=== PATIENT | male | born 1930 | race Caucasian/White ===

== ENCOUNTER 2021-01-22 11:23 | Inpatient (IN) | payer MEDICARE, OTHER ==
[~2021-01-22] VITALS: Ht 167.6 cm; Wt 69.1 kg
[2021-01-22 12:03] LABS: BASOPHIL 0.2 % (0-2); EOSINOPHIL 0 % (0-7); HCT 42.5 % (42.0-52.0); HGB 14.4 g/dl (13.2-18.0); MCH 31.2 pg (25.0-31.0); MCHC 33.9 g/dL (32.0-36.0); MCV 92.2 fL (78.0-100.0); MONOCYTE 5.1 % (0-12); MPV 10.4 fL (6.0-9.5); NEUTROPHIL 77.4 % (41-80); NRBC 0; PLT 184 K/uL (150-400); RBC 4.61 M/uL (4.70-6.00); RDW 14.5 % (11.5-14.0); WBC 9.5 K/uL (4.0-10.5)
[2021-01-22 12:13] LABS: INR 1.11 (0.9-1.2); PROTHROMBIN TIME 13.7 SECONDS (11.8-13.4)
[2021-01-22 12:30] LABS: ALBUMIN 3.3 g/dL (3.4-5.0); BILIRUBIN - TOTAL 0.6 mg/dL (0.2-1.0); GLOBULIN (CALCULATION) 4.7 g/dL; POTASSIUM 3.1 mmol/L (3.5-5.1)
[2021-01-22 12:37] LABS: LACTIC ACID 1.5 mmol/L (0.4-1.9)
[2021-01-23 06:08] LABS: BASOPHIL 0.1 % (0-2); EOSINOPHIL 0 % (0-7); HCT 41.2 % (42.0-52.0); HGB 13.8 g/dl (13.2-18.0); LYMPHOCYTE 19.3 % (15-48); MCH 31.2 pg (25.0-31.0); MCHC 33.5 g/dL (32.0-36.0); MCV 93.2 fL (78.0-100.0); MONOCYTE 5.3 % (0-12); MPV 10.3 fL (6.0-9.5); NEUTROPHIL 74.8 % (41-80); NRBC 0; PLT 178 K/uL (150-400); RBC 4.42 M/uL (4.70-6.00); RDW 14.5 % (11.5-14.0); WBC 7.5 K/uL (4.0-10.5)
[2021-01-23 06:10] LABS: HBSAG SCREEN Negative (Negative); HEP A AB, IGM Negative (Negative); HEP B CORE AB, IGM Negative (Negative); HEP C VIRUS AB <0.1 (0.0-0.9)
[2021-01-23 06:30] LABS: ALBUMIN 2.9 g/dL (3.4-5.0); BILIRUBIN - TOTAL 0.5 mg/dL (0.2-1.0); BUN/CREAT RATIO (CALC) 39.6 RATIO; CREATININE 1.06 mg/dL (0.67-1.17); GLOBULIN (CALCULATION) 4.7 g/dL; MAGNESIUM 2.8 mg/dL (1.8-2.4); POTASSIUM 3.9 mmol/L (3.5-5.1); TOTAL PROTEIN 7.6 g/dL (6.4-8.2)
[2021-01-25 07:06] LABS: BASOPHIL 0.1 % (0-2); EOSINOPHIL 0 % (0-7); HCT 44.3 % (42.0-52.0); HGB 14.6 g/dl (13.2-18.0); LYMPHOCYTE 10.5 % (15-48); MCH 31.4 pg (25.0-31.0); MCV 95.3 fL (78.0-100.0); MONOCYTE 5.5 % (0-12); MPV 10.6 fL (6.0-9.5); NEUTROPHIL 83.3 % (41-80); NRBC 0; PLT 210 K/uL (150-400); RBC 4.65 M/uL (4.70-6.00); RDW 14.4 % (11.5-14.0); WBC 12.4 K/uL (4.0-10.5)
[2021-01-25 07:48] LABS: ALBUMIN 2.8 g/dL (3.4-5.0); BILIRUBIN - TOTAL 0.8 mg/dL (0.2-1.0); BUN/CREAT RATIO (CALC) 44.3 RATIO; CREATININE 0.88 mg/dL (0.67-1.17); GLOBULIN (CALCULATION) 4.6 g/dL; POTASSIUM 3.7 mmol/L (3.5-5.1); TOTAL PROTEIN 7.4 g/dL (6.4-8.2)
[2021-01-28 07:52] LABS: BASOPHIL 0.2 % (0-2); EOSINOPHIL 0 % (0-7); HCT 45.7 % (42.0-52.0); LYMPHOCYTE 5.8 % (15-48); MCH 31.3 pg (25.0-31.0); MCHC 32.8 g/dL (32.0-36.0); MCV 95.2 fL (78.0-100.0); MONOCYTE 3.5 % (0-12); MPV 10.7 fL (6.0-9.5); NEUTROPHIL 89.4 % (41-80); NRBC 0; PLT 288 K/uL (150-400); RDW 14.3 % (11.5-14.0); WBC 17.2 K/uL (4.0-10.5)
[2021-01-28 08:07] LABS: ALBUMIN 2.7 g/dL (3.4-5.0); BILIRUBIN - TOTAL 0.7 mg/dL (0.2-1.0); BUN/CREAT RATIO (CALC) 51.1 RATIO; CREATININE 0.94 mg/dL (0.67-1.17); GLOBULIN (CALCULATION) 5.1 g/dL; MAGNESIUM 3.1 mg/dL (1.8-2.4); POTASSIUM 3.8 mmol/L (3.5-5.1); TOTAL PROTEIN 7.8 g/dL (6.4-8.2)
--- NOTE | 2021-01-29 15:15 | NUR ---
01/29/21 Mr. Villaseñor is an 89 y/o gentleman admitted with dx of COVID. He and his spouse were admitted on 01/22/21. Ms. Villaseñor several days ago. Nursing reports patient to be taking off his oxygen and stating that he wants to . Corinna Moran, MS RN, and this forensic social worker spoke to Mr. Villaseñor re: his wishes. He said he was taking off his oxygen and wanted to because he is going to anyway. He was educated that the goal is to reduce the level of oxygen as tolerate to allow him to return home with his daughter. He was informed that the outcome cannot be predicited. Mr. Villaseñor says he does not want to and he wishes to return home. He gave permission for us to talk with his family. He also wishes to see his family (Permission was given by Administration for family to visit. - Corinna Moran and this forensic social worker telephoned his daughter, Angie Ly, , and her granddaughter, Violet Perez. The family plan to visit today. Ms. perez stated that the family supports whatever decisions Mr. Villaseñor makes. - A report was given to Dr. Rivers and MS Machine Ironer, Deya Carty.
--- NOTE | 2021-01-30 20:06 | NUR ---
PATIENT FOUND WITH O2 OFF, SAT ON LEFT HAND WAS 60%. PLACED PATIENT BACK ON 100% NRB AND SAT DID INCREASE TO 85%. HR 115. PATIENT IS RESTLESS.
--- NOTE | 2021-01-30 23:09 | NUR ---
PT REFUSING ALL CARE, SPOKE WITH CHOCOLATE MOLDER/GRANDCHILD VIVIANE MONTALVO [phone]. [facility] STATES COMFORT MEASURES ARE ALL THEIR LOVED ONE NEEDS AT THIS TIME. [employer] ARCHITECT BERKLEY NOTIFIED.
--- NOTE | 2021-02-01 11:59 | NUR ---
1150 PATIENT NOTED TO HAVE KIA VALDOVINOS BREATHING, TACHYCARDIA 110-125. PATIENT COMFORT CARE. DR BURGOS NOTIFIED OF CHANGES
--- NOTE | 2021-02-01 15:17 | NUR ---
02/01/21 Mr. Villaseñor' condition has deteriorated. Several conversations have taken place with the family with Violet Perez, great granddaughter, , being the spokes person. Faina grandmother, Angie Aparicio, , patient's daughter, has been present in the telephone conversations. Family initially hoped to [facility] when [facility] quarant[facility] period is up. However, it is now concerning if Mr. Villaseñor would survive EMS transport home. Family has decided for Mr. Villaseñor to remain in the hospital at this time. Arrangements were made with the [place] spervisor for family to be at bedside.
--- NOTE | 2021-02-01 19:07 | NUR ---
1800 FAMILY AT BEDSIDE, GRAND DAUGHTER STATED THAT HER GRANDMOTHER WHO WAS ASO A PATIENT HERE GAVE PATIENT HER WALLET. ROOM AND PATIENT BELONGINGS CHECKED WITH FMAILKelby AT BEDSIDE. BARREL RIBS SOLDERER AND SECURITY NOTIFIED, SECURITY CHECKS DOWNSTAIRS SAFE AND FOUND NO WALLET. SECURITY ALSO CHECKED ROOM SAFE AND NO WALLET FOUND THERE EITHER. FAMILY INFORMED, GRAND DAUGHTER STILL STATES THAT HER GRANDMOTHERS WALLET WAS GIVEN TO PATIENT. BARREL RIBS SOLDERER NOTIFIED
--- NOTE | 2021-02-02 16:35 | NUR ---
02/02/21 Telephone conversation with Violet Perez, great granddaughter, . Ms. Perez reports family's wishes for Mr. Villaseñor to remain at the hospital. They don't believe his care needs could be met at home even with [facility]. Also, they are unable to afford EMS transport.
--- NOTE | 2021-02-03 03:51 | NUR ---
ATIVAN GIVEN AT 2250 AND 0030 FOR RESTLESSNESS MORPHINE GIVEN AT 258 FOR PAIN AND BEFORE REPOSITIONING HOURLY MONITORING BY NURSE
== END 2021-02-03 16:00 | disposition expired | DRG 177 ==
LOC: FER 11:23 → FMS 13:33
PROVIDERS: Internal Medicine; Physician Assistant; ADMIT Family Medicine
PROC: 8E0ZXY6 Isolation (ICD-10-PCS; principal; 2021-01-22)
PROC: XW033E5 Introduction of Remdesivir Anti-infective into Peripheral Vein, Percutaneous Approach, New Technology Group 5 (ICD-10-PCS; 2021-01-22)
PROC: XW0DXM6 Introduction of Baricitinib into Mouth and Pharynx, External Approach, New Technology Group 6 (ICD-10-PCS; 2021-01-26)
DX: U07.1 COVID-19 (principal); J96.01 Acute respiratory failure with hypoxia; J12.82 Pneumonia due to coronavirus disease 2019; R64 Cachexia; E87.6 Hypokalemia; Z51.5 Encounter for palliative care; Z66 Do not resuscitate; R73.9 Hyperglycemia, unspecified; T38.0X5A Adverse effect of glucocorticoids and synthetic analogues, initial encounter; E86.0 Dehydration; Z83.3 Family history of diabetes mellitus; Z68.24 Body mass index [BMI] 24.0-24.9, adult
CPT/HCPCS: 36415; 36600; 71045; 80053; 80074; 82803; 83036; 83605; 83735; 84145; 84484; 85025; 85610; 86140; 87040; 93005; 94760; 94762; 97162; 97530-GP; C9399; J1100; J1650; J2060; J2270; J2405; J3360; J7040; J7050; J8540; U0002